=== PATIENT | female | born 1940 | race Caucasian/White ===

== ENCOUNTER 2018-04-27 09:54 | Day surgery (SDC) | payer MEDICARE, OTHER ==
[~2018-04-27 09:54] MED LIST: ACETAMINOPHEN 1,000 MG/100 ML BTL IV ONE; CELECOXIB 100 MG CAPSULE PO ONE; FAMOTIDINE 20MG TABLET PO ONE; MECLIZINE 25 MG TABLET PO ONE; METOCLOPRAMIDE 10 MG TABLET PO ONE; VANCOMYCIN HCL 1,000 MG in DEXTROSE 5 % IN WATER 250 ML IVPB ONE
[2018-04-27] MEDS ORDERED: DEXAMETHASONE 4 MG/ML 1ML VIAL IVP ONE (09:55)
[2018-04-27] MEDS ORDERED: TRANEXAMIC ACID 1,000 MG/10 ML ML IV ONE (09:55)
[2018-04-27] MEDS ORDERED: LIDOCAINE 2% MDV (20MG/ML) 20ML VIAL IV ONE (09:55)
[2018-04-27] MEDS ORDERED: ONDANSETRON HCL IV 4 MG/2 ML VIAL IVP ONE (09:55)
[2018-04-27] MEDS ORDERED: EPHEDRINE SULFATE 50 MG/ML ML IV ONE (09:55)
[2018-04-27] MEDS ORDERED: ROPIVACAINE HCL (NAROPIN) /PF 5MG/ML 20ML VIAL IV ONE (09:55)
[2018-04-27] MEDS ORDERED: FENTANYL PF 100MCG/2ML VIAL IV ONE (09:55)
[2018-04-27] MEDS ORDERED: LOPERAMIDE 2 MG CAPSULE PO ONE (09:55)
[2018-04-27] MEDS ORDERED: VANCOMYCIN HCL 1 GM VIAL IVPB ONE (09:55)
[2018-04-27] MEDS ORDERED: PROPOFOL 10 MG/ML VIAL IV ONE (09:55)
[2018-04-27] MEDS ORDERED: MIDAZOLAM HCL 2MG/2ML VIAL IV ONE (09:55)
[2018-04-27 10:28] LABS: ABO GROUP A; RH TYPE POSITIVE
[2018-04-27 10:41] LABS: ANTIBODY SCREEN NEGATIVE (NEGATIVE)
[2018-04-27] MEDS ORDERED: DIPHENHYDRAMINE HCL 25 MG CAPSULE PO PRN (12:05)
[2018-04-27] MEDS ORDERED: MAGNESIUM HYDROXIDE 30 ML UDC PO PRN (12:05)
[2018-04-27] MEDS ORDERED: HYDROCODONE/APAP 5/325MG TABLET PO PRN ×2 (12:05)
[2018-04-27] MEDS ORDERED: ACETAMINOPHEN W/ CODEINE 300MG/60MG TABLET PO PRN ×2 (12:05)
[2018-04-27] MEDS ORDERED: NALOXONE 0.4 MG/1 ML VIAL IVP PRN (12:05)
[2018-04-27] MEDS ORDERED: ACETAMINOPHEN 325 MG TAB PO PRN (12:05)
[2018-04-27] MEDS ORDERED: TRAMADOL HCL 50 MG TABLET PO PRN ×2 (12:05)
[2018-04-27] MEDS ORDERED: PROMETHAZINE HCL 25 MG TABLET PO PRN (12:05)
[2018-04-27] MEDS ORDERED: KETOROLAC 30 MG/ML VIAL IVP PRN ×2 (12:05)
[2018-04-27] MEDS ORDERED: METOCLOPRAMIDE 10 MG TABLET PO PRN (12:05)
[2018-04-27] MEDS ORDERED: ONDANSETRON 4 MG ODT TABLET SL PRN (12:05)
[2018-04-27] MEDS ORDERED: HYDROCODONE/APAP 7.5/325MG TABLET PO PRN (12:05)
[2018-04-27] MEDS ORDERED: AL HYDROX/MAG HYDROX 30ML UD PO PRN (12:05)
[2018-04-27] MEDS ORDERED: ACETAMINOPHEN W/ CODEINE 300MG/30MG TABLET PO PRN ×2 (12:05)
[2018-04-27] MEDS ORDERED: BISACODYL 10 MG SUPP RC PRN (12:05)
[2018-04-27] MEDS ORDERED: LORATADINE 10 MG TABLET PO ONE (15:15)
--- NOTE | 2018-04-27 15:51 | Rehab Evaluation ---
Patient Information - Patient Information Diagnosis: R knee OA Ordered Treatment: PT Evaluate and Treat Status: Initial Evaluation Surgery: Yes Date of Surgery: 04/27/18 Past Medical/Surgical Hx: PAST MEDICAL/SURGICAL HISTORY Past Surgical History cardiac stent 02-04-17 cardiac ablation 2016 bowel resection and hernia repair LIANNE c scope PMH - Respiratory Hx Respiratory Disorders Yes Hx Bronchitis Yes Hx Pneumonia Yes: as a child Hx of SOB Yes: occassionally with exertion had neg PFT PMH - Cardiovascular Hx Cardiovascular Disorders Yes Hx Abnormal EKG Yes Hx Cardiac Catheterization Yes Hx Edema Yes: feet and ankles on occassion Hx Hypertension Yes: well controlled on meds Hx Irregular Heartbeat Yes: a fib resolved with Ablation Hx Coronary Artery Disease Yes Hx Coronary Stent Yes: 2016 Comment: hyperlipidemia PMH - Neuro Hx Neurological Disorders No PMH - GI Hx Gastrointestinal Disorders Yes Hx Diverticulitis Yes Hx Obstructive Bowel Yes: had resection due to diverticulitis PMH - Hx Genitourinary Disorders No Hx Age of Menopause 61 PMH - Endocrine Hx Endocrine Disorders No PMH - Musculoskeletal Hx Musculoskeletal Disorders Yes Hx Arthritis Yes: right knee Comment: osteopenia PMH - Psych Hx Psychiatric Problems No PMH - Hematology/Oncology Hx Hematology/Oncology Yes Disorders Hx Blood Transfusion Reaction No Premorbid Status: Detail (Prior to Surgery the patient was independent with all mobility.) Social History: Detail (The patient lives with spouse in one story house with 3 steps at the enterance and no hand railings . The bathroom is equipped with a tub/shower combination with a hand held shower head and a standard height toilet with a commode seat with handles. The patient has a walker with wheels.) Precautions: [place], Fall, Other (WBAT on the R LE.) - Time With Patient Total Time Spent With Patient (Min): 30 Treatment Procedures: Detail (Initial Evaluation and gait training.) Subjective Information - Subjective Information Per Patient (Patient was supine in bed upon arrival. Patient had no complaints of pain, but did note pins and needles in both feet. When standing the patient stated that she felt like she was standing on 'bubble wrap'.) Objective Data - Pain Pain Present: No - Mental Status Patient Orientation: Oriented x3 - Visual Perception Appears within normal limits for therapeutic activities - ROM Not within normal limits (The patient's R knee is limited as to be expected s/p surgery. All other LE AROM is WNL.) - Strength/Tone Not within normal limits (The patient's R LE was not tested due to s/p surgery.) - Bed Mobility Independent (Patient was IND with supine to and from sit transfers.) - Transfers Independent (Patient was IND with sit to stand transfers.) - Balance Balance Sitting: Good Balance Standing: Good - Sensation Intact (Patient still reported some numbness from surgery.) - Gait Detail (Patient ambulated 20' using a front wheeled walker and CGA for safety. WBAT on R LE.) Therapy Assessment - Therapy Assessment Detail (Patient was IND with all mobility, and transfers. Feel patient will progress well with continued PT. Patient was left supine in bed with call light in reach.) Patient Education - Patient Education Teaching Topic: Exercise/Activity (ankle pumps, heel slides, quad sets, hamstring sets, glut sets, SLR.) Response: Return Demonstration, Verbalize Understanding Teaching Method: Demonstration, Audiovisual Teaching Recipient: Patient Barriers To Learning: Age Related Problem List - Problem List Physical Therapy Problem List: Detail (1) Limited R knee ROM 2) Limited R LE strength) Goals - Goals Physical Therapy Goals: 1) Patient will be able to ambulate a flight of 3 stairs with a folded walker, hand rail, and SBA for safety. Prognosis - Prognosis Good Plan - Plan Physical Therapy Plan: Patient will be seen 1-2 more times to work on stair training.
[2018-04-27] MEDS: DEXTROSE 5 % AND 0.9 % NACL 1,000 ML IV PRN (16:00)
[2018-04-27] MEDS ORDERED: VANCOMYCIN HCL 500 MG in 0.9 % SODIUM CHLORIDE 100ML 100 ML IVPB SCH (16:00)
--- NOTE | 2018-04-27 16:21 | Rehab Evaluation ---
Patient Information - Patient Information Diagnosis: R knee OA Ordered Treatment: OT Evaluate and Treat Status: Initial Evaluation Surgery: Yes Date of Surgery: 04/27/18 Past Medical/Surgical Hx: PAST MEDICAL/SURGICAL HISTORY Past Surgical History cardiac stent 02-04-17 cardiac ablation 2016 bowel resection and hernia repair LIANNE c scope PMH - Respiratory Hx Respiratory Disorders Yes Hx Bronchitis Yes Hx Pneumonia Yes: as a child Hx of SOB Yes: occassionally with exertion had neg PFT PMH - Cardiovascular Hx Cardiovascular Disorders Yes Hx Abnormal EKG Yes Hx Cardiac Catheterization Yes Hx Edema Yes: feet and ankles on occassion Hx Hypertension Yes: well controlled on meds Hx Irregular Heartbeat Yes: a fib resolved with Ablation Hx Coronary Artery Disease Yes Hx Coronary Stent Yes: 2016 Comment: hyperlipidemia PMH - Neuro Hx Neurological Disorders No PMH - GI Hx Gastrointestinal Disorders Yes Hx Diverticulitis Yes Hx Obstructive Bowel Yes: had resection due to diverticulitis PMH - Hx Genitourinary Disorders No Hx Age of Menopause 61 PMH - Endocrine Hx Endocrine Disorders No PMH - Musculoskeletal Hx Musculoskeletal Disorders Yes Hx Arthritis Yes: right knee Comment: osteopenia PMH - Psych Hx Psychiatric Problems No PMH - Hematology/Oncology Hx Hematology/Oncology Yes Disorders Hx Blood Transfusion Reaction No Premorbid Status: Detail (Prior to Surgery the patient was independent with all mobility and ADLs.) Social History: Detail (The patient lives with spouse in one story house with 3 steps at the enterance and no hand railings . The bathroom is equipped with a tub/shower combination with a hand held shower head and a standard height toilet with a commode seat with handles. The patient has a walker with wheels.) Precautions: [place], Fall, Other (WBAT on the R LE.) - Time With Patient Total Time Spent With Patient (Min): 15 Treatment Procedures: Detail (OT eval LOW) Subjective Information - Subjective Information Per Patient (Pt has no concerns at this time.) Objective Data - Pain Pain Present: No (Pt is still under influence of anesthesia at this time.) Pain Intensity: 0 Pain Scale Used: Numeric (1 - 10) - Mental Status Patient Orientation: Oriented x3 - Visual Perception Appears within normal limits for therapeutic activities - ROM Within normal limits (BUE's) - Strength/Tone Within normal limits (BUE's) - Coordination Appears within normal limits for therapeutic activities - ADL's/IADL's Detail (Due to patient arriving at inpatient floor later than anticipated and still being under affects of anesthesia, all education on ADL modified drsg technique was completed verbally. Both patient and patient's spouse able to verbalize technique after instruction was given, and had no questions or concerns at end of evaluation. Pt will have assistance available 24-7 to assist with harder ADLs such as sock and shoe don. Pt plans to sponge bath at this time until sylwia are removed, however, she is able to verbalize technique to wrap incision in order to avoid water saturation should she attempt to shower. Pt will wear slip on shoes. BUE's are WNL for strength and ROM and will be able to assist with t/f's, mobility, and ADLs. At end of evaluation, patient had no concerns about drsg and feels confident she will be able to complete this. Spouse will be available to help as needed.) Therapy Assessment - Therapy Assessment Detail (Pt and pt's spouse able to verbalize modified drsg technique and feel confident on her ability to complete this at home independently.) Patient Education - Patient Education Teaching Topic: Other (modified drsg technique) Response: Verbalize Understanding Teaching Method: Discussion Teaching Recipient: Patient, Significant Other (spouse) Barriers To Learning: None Prognosis - Prognosis Good Plan - Plan Occupational Therapy Plan: No further inpatient OT needed at this time.
[2018-04-27] MEDS: DOCUSATE SODIUM 100 MG CAPSULE PO SCH (21:35)
[2018-04-27] MEDS ORDERED: PRAMIPEXOLE DI-HCL 0.25 MG TABLET PO PRN ×2 (22:00)
[2018-04-28] MEDS: HYDROCODONE/APAP 7.5/325MG TABLET PO PRN ×2 (00:22→06:38)
[2018-04-28] MEDS: DEXTROSE 5 % AND 0.9 % NACL 1,000 ML IV PRN (00:28)
--- NOTE | 2018-04-28 09:32 | Physical Therapy Tx Note ---
Physical Therapy Tx Note - Treatment Note Tolerated: Good Total Time Spent With Patient: 25 Physical Therapy Tx Note: Detail (Patient was lying supine in bed upon arrival with minimal complaints of pain. Patient ambulated 200' using a front wheeled walker and supervision for safety. Patient also ambulated a flight of 3 stairs using a folded walker, hand rail, and supervision for safety. Patient was educated on seated heel slides. Patient was left supine in bed with call light in reach.) Physical Therapy Problem List: Detail (1) Limited R knee ROM 2) Limited R LE strength) Physical Therapy Goals: 1) Patient will be able to ambulate a flight of 3 stairs with a folded walker, hand rail, and SBA for safety. (Goal Met) Physical Therapy Plan: Patient has met all IP PT goals and will be discharged to home PT.
[2018-04-28] MEDS ORDERED: METOPROLOL SUCC 50 MG TABLET PO SCH (10:00)
[2018-04-28] MEDS ORDERED: LORATADINE 10 MG TABLET PO SCH (10:00)
[2018-04-28] MEDS: DOCUSATE SODIUM 100 MG CAPSULE PO SCH (10:15)
--- NOTE | 2018-04-29 19:16 | Operative Note ---
DATE OF SURGERY: 04/27/2018 PREOPERATIVE DIAGNOSIS: End-stage right knee arthrosis. POSTOPERATIVE DIAGNOSIS: End-stage right knee arthrosis. PROCEDURE: Right total knee arthroplasty. SURGEON: Mert Quach M.D. ANESTHESIA: Spinal, Dipak Masters CRNA. COMPLICATIONS: None. BLOOD LOSS: Minimal. OPERATIVE FINDINGS: [id number] tricompartment arthrosis. COMPONENTS PLACED: 2 gram Vancomycin, cemented [employer] Journey II Oxinium size 5 femoral component, size 5 tibial baseplate, a 9 mm thick tibial poly insert, and a 35 mm cemented patellar component. INDICATIONS FOR OPERATION: This is a 78-year-old female with end-stage right knee arthrosis. She failed nonoperative treatment and is scheduled for a right total knee arthroplasty. I explained the risks and benefits to her in detail for her diagnosis and procedures including but not limited to infection, nerve injury, vessel injury, persistent pain, persistent numbness and tingling in her knee, periprosthetic fracture, need for resection arthroplasty should the components become infected or loosened, nerve injury, vessel injury, blood clot , need for further procedures, need for anticoagulation to prevent blood clots and the risks associated with these medications and all of her questions were answered. The rehab and course were outlined and she agreed to proceed. PROCEDURE: The patient was brought to the O.R. and placed in the supine position for the proper surgery. Spinal anesthesia was induced and her right lower extremity and knee were prepped and draped in sterile fashion. The right knee was prepped again with ChloraPrep after it was draped. Intraoperative time- out was performed. The leg was exsanguinated with an Esmarch. The knee was flexed to 90 degrees and the tourniquet inflated to 215 mmHg pressure. Next, the skin and subcutaneous tissue were dissected down to the fascia. I incised the capsule medially around the medial border of the of the patella to the tibial tubercle. I incised the vastus medialis in line with the fibers in a mid vastus approach. I partially resected the retropatellar fat pad. I flexed the knee. She had severe [id number] arthrosis throughout the entire knee. Next, we drilled the hole and inserted the intramedullary guide jamarcus and inserted the cutting jig. We dialed in the anterior cut so it would come out flush without notching. Next, we seated it on the distal femur flush and pinned it in 0 position with two anterior and posterior pins. We then moved it to the + 2 mm position, cross-pinned it and completed the fixation and then cut the distal femur. We placed the sizing jig in the distal femur and sized to be right on size 5. Through the previously placed pinholes, we placed the 5-in-1 cutting jig. We dialed in the anterior cut so it would come out flush without notching first. We cut that cut. It was a good flush cut anteriorly. We then pinned it and completed the remainder of the chamfer cuts in the usual fashion. Next, we removed the cutting jig and then placed the size 5 trial component. We seated it, pinned it, removed osteophytes off the periphery and inserted the resection collet and reamed out and box osteotomed out the cruciate bone block. Next, attention was turned to the tibia. We removed the meniscus and remaining tissue. We seated the spikes in the intertubercular groove two fingerbreadths distally off the anterior tibial cortex off the central third of the tibial tubercle, referencing for a 7 mm cut off the higher lateral plateau. We pinned the cutting jig in place provisionally with two anterior and posterior pins. We rechecked alignment of the cutting jig using a drop jamarcus centered on the tibial anatomic axis. We cross-pinned it to complete its fixation and then cut the tibia. Next, we then removed osteophytes from the posterior femoral condyles, checked flexion and extension gaps. She had symmetric flexion and extension gaps with a 9 mm thick poly inserted. This allowed for 2 to 3 mm of varus/valgus laxity in flexion and extension. Overall alignment of cuts in extension with the anatomic valgus orientation with the alignment jamarcus centered on the hip joint and the ankle joint. Next, we took the knee into flexion. We sized the tibial baseplate to be a size 5. We replaced all trial components. Set the rotation of the tibial baseplate again in extension using the alignment jamarcus centered on the hip joint and the ankle joint. We marked electrocautery melton on the anterior tibial cortex off the laser melton on the tibial baseplate. Attention was turned to the patella. We measured the patella to be 21 mm. We set the cutting jig at 13 mm to allow for a 9 mm thick poly insert. We cut the patella. It was right on 13. We then chamfered off the lateral patellar facet, sized it to be a 35 mm. We medialized as much as possible and drilled three peg holes. We mixed cement. We placed the trial patellar component and did a trial range of motion. The patella tracked nicely hands free with full extension and flexion to 140 to 150 degrees, again symmetric flexion and extension gaps. Next, we seated the tibial baseplate off the previously placed electrocautery melton. We pinned that in placed and then drilled out and keel punched the keel hole. We then removed any excess osteophytes off the periphery. I irrigated copiously. We placed a bone plug in the femoral canal hole and the drill in the tibial hole. We then pre-coated both surfaces and impacted down the tibial component and then the femoral component and clamped down the patellar component. We held the knee in extension while cement hardened and removed excess cement. Next, we took the knee into flexion, removing excess cement around the edges of the components. We distracted the knee with bone hook and sponge. We removed any excess cement from around the edges of the components again and then injected the capsule posterior medially and laterally, working out from deep to superficial to the patellar tendon, vastus medialis and anteriorly at the quadriceps muscle with 0.5% Marcaine with Epinephrine, 2 grams tranexamic acid, and Exparel mixture. Next, we inserted the real tibial poly insert and verified it was interlocked medially and laterally. Final range of motion revealed the same. Next, we closed the capsule in flexion using running #2 Quill suture. Irrigated again. Closed the skin deep with 2-0 Vicryl and injected again subcutaneous with 0.5% Marcaine with Epinephrine and sterile dressing was applied with Acticoat and standard dressing. This will be changed to JHON dressing prior to discharge, which was discharged home today, she is an outpatient. She will follow-up in two weeks and have [facility] Therapy Nurse waiting for her at home today. cc: Dr. Ashkan Fuentes JOB NUMBER: [id number] MTDD
== END 2018-04-28 11:20 | disposition home or self-care (01) ==
LOC: SUR 09:54 → MEDSURG 14:49 → SUR 04-28 11:20
PROVIDERS: ATTEND Orthopaedic Surgery
DX: M17.11 Unilateral primary osteoarthritis, right knee (principal); I10 Essential (primary) hypertension; E78.00 Pure hypercholesterolemia, unspecified; G25.81 Restless legs syndrome; Z95.5 Presence of coronary angioplasty implant and graft; Z79.01 Long term (current) use of anticoagulants
CPT/HCPCS: 27447; 01402; 64447; 86900; 86901; 86850; J2405; J3370; J3010; J3490; J2795; G8978; G8979 ×2; G8980; G8987; G8988; G8989; 97530; J7042; J7060